=== PATIENT | female | born 1980 | race African-American/Black ===

== ENCOUNTER 2022-01-12 11:02 | Emergency (ER) | payer OTHER, SELFPAY ==
[2022-01-12 11:02] VITALS: BP 121/73; PULSE 86; RESP 12; TEMP 37; O2SAT 98
[2022-01-12 11:12] VITALS: PULSE 100
[2022-01-12 11:33] LABS: Glucose Point of Care 146 mg/dl (65-105)
[2022-01-12] MEDS: METOCLOPRAMIDE HCL INJ 10 MG/2 ML VIAL IV PUSH (11:48)
[2022-01-12 11:49] VITALS: BP 121/91; PULSE 100; RESP 17; O2SAT 100
--- NOTE | 2022-01-12 12:10 | ED.SEIZURE ---
HPI - Seizure General Chief Complaint: Seizure Stated Complaint: seizure like activity Time Seen by Provider: 01/12/22 11:13 History of Present Illness HPI Narrative: 41-year-old female presenting with witnessed seizure, she states that she was diagnosed with seizures endorses some mild headache, no several months ago and was started on Keppra, however she missed 2 doses. Focal numbness or weakness, no nausea vomiting, no head trauma. Per witness seizure lasted about 2 to 5 minutes, appear to be general tonic-clonic, and per EMS was postictal afterwards. Related Data Home Medications Medication Instructions Recorded Confirmed Keppra 500 BID 01/12/22 Allergies Allergy/AdvReac Type Severity Reaction Status Date / Time No Known Allergies Allergy Verified 01/12/22 11:09 Review of Systems Review of Systems: CONST: No fever. HEENT: No sore throat C/V: No chest pain RESP: No cough GI: No nausea or vomiting : No dysuria. M/S: No joint pain. SKIN: No rash. NEURO: Headache without focal numbness or weakness PSYCH: [No depression] [facility] Past Medical History Medical History (Updated 01/12/22 @ 18:21 by Saida Lino MD) Generalized seizure Social History Social History (Updated 01/12/22 @ 18:23 by Saida Lino MD) Smoking status: Never smoker Exam Narrative: EXAMINATION OF ORGAN SYSTEMS/BODY AREAS: Constitutional: Vital signs per nursing GENERAL: Appears tired HEAD: Normal with no signs of head trauma. EYES: EOMI, conjunctiva normal ENT: Hearing grossly intact LUNGS: Nonlabored breathing. HEART: [Regular rate and rhythm] ABD: [Soft], nondistended EXT: Normal range of motion, moves all extremities SKIN: [No rashes or lesions.] NEURO: [Tired but answering questions, oriented x 3. No gross focal sensory or strength deficits.] PSYCH: Normal affect Course Vital Signs Vital signs: Vital Signs Temperature 98.6 F 01/12/22 11:02 Pulse Rate 86 01/12/22 11:02 Respiratory Rate 12 01/12/22 11:02 Blood Pressure 121/73 01/12/22 11:02 Pulse Oximetry 98 01/12/22 11:02 Oxygen Delivery Room Air 01/12/22 11:02 Temperature 98.6 F 01/12/22 11:02 Pulse Rate 88 01/12/22 13:07 Respiratory Rate 16 01/12/22 13:07 Blood Pressure 139/88 01/12/22 13:07 Pulse Oximetry 97 01/12/22 13:07 Oxygen Delivery Room Air 01/12/22 11:02 MDM - Seizure MDM Narrative Medical decision making narrative: 41-year-old female presenting with breakthrough seizures occurring today, likely from nonadherence to medications. Accu-Chek is normal. Seizure precautions are initiated. Patient was loaded with their home medication and counseled about the importance of taking medications daily as prescribed. She had a headache which resolved after getting Reglan here. She expressed understanding of instructions, remained stable in the emergency department for a period of observation without any recurrence of the symptoms and was discharged in stable condition with return precautions and outpatient follow-up with neurology provided. Patient states that she has a neurologist but does not like them, and given that she has not had an MRI yet, I do feel this is important for her to obtain given her new onset seizures over the last few months, so I will give her follow-up to our neurologist. Strict return precautions provided if she has any further seizures. Neurologic exam here remains normal. Procedures: Pulse oximetry interpretation - not hypoxic. Review of medical records. Lab Data Labs: Lab Results 01/12/22 Range/Units 11:31 POC Capillary Glucose 146 H (65-105) mg/dl Discharge Plan Discharge Clinical Impression: Generalized seizure Patient Disposition: Home, Self-Care Condition: Stable Instructions: Antibiotic Form, Recurrent Seizures in Adults (ED) Additional Instructions: Please follow up with the neurologist; come back if you have any worsening symptoms, any new w
[2022-01-12 13:07] VITALS: BP 139/88; PULSE 88; RESP 16; O2SAT 97
== END 2022-01-12 13:07 | disposition home or self-care (01) ==
LOC: ANHED 12:35
PROVIDERS: Emergency Provider Emergency Medicine; PCP Physician Assistant
DX: R56.9 Unspecified convulsions (principal); T42.6X6A Underdosing of other antiepileptic and sedative-hypnotic drugs, initial encounter
CPT/HCPCS: 82948; 96365; 96375; 99284; J2765

== ENCOUNTER 2022-01-24 06:49 | Outpatient (CLI) | payer OTHER, SELFPAY ==
--- NOTE | ~2022-01-24 | MR_ITS ---
EXAMINATION: MR brain/brain stem wo con DATE: 01/24/2022 07:33 INDICATION: Seizure. TECHNIQUE: Magnetic resonance imaging (MRI) of the brain and brainstem was performed without intraven ous contrast. The exam was terminated after a few sequences at the patient's request. COMPARISON: None. FINDINGS: There is no intracranial hemorrhage, acute infarction, or abnormal intracranial mass lesion . The ventricles are normal in size. The orbits are normal. The paranasal sinuses are clear. The mast oid air cells are normal. IMPRESSION: 1. Normal brain. Reviewed, dictated and finalized at location A. IMPRESSION: 1. Normal brain.
== END 2022-01-24 06:50 | disposition home or self-care (01) ==
PROVIDERS: PCP Family Medicine; Visit Provider Psychiatry & Neurology Neurology
DX: R56.9 Unspecified convulsions (principal)
CPT/HCPCS: 70551

== ENCOUNTER 2022-01-29 06:43 | Outpatient (CLI) | payer OTHER, SELFPAY ==
--- NOTE | 2022-01-29 11:06 | WPDNEUROLOGY ---
Neurology EEG Report General Information Date of Study: 01/29/22 TEST EEG DIAGNOSIS seizures CONDITION OF RECORDING awake drowsy and sleep EEG NUMBER [id number] CLINICAL HISTORY patient states she had a new onset seizure 3 months ago and then a 2nd 1 about 2 weeks ago. No warning signs before. EEG DESCRIPTION Basic resting occipital frequency consists of large amount of medium voltage 10 per 2nd alpha admixed with low-voltage 15 to 18 hertz per 2nd beta. During drowsiness low-voltage beta activity seen diffusely admixed with waxing and waning posterior alpha rhythm. Bilateral symmetrical sleep activity seen during sleep. Hyperventilation not done. Photic stimulation produces normal drive. Non paroxysmal. Nonfocal. Nonlateralizing. IMPRESSION Normal record
== END 2022-01-29 06:44 | disposition home or self-care (01) ==
PROVIDERS: PCP Family Medicine; Visit Provider Psychiatry & Neurology Neurology
DX: R56.9 Unspecified convulsions (principal)
CPT/HCPCS: 95816